=== PATIENT | male | born 1945 | race Caucasian/White ===

== ENCOUNTER 2019-02-14 08:59 | Outpatient (CLI) | payer MEDICARE ==
--- NOTE | 2019-02-14 15:45 | NM ---
Nuclear medicine ESME brain scan: DATE: 74-year-old male with Parkinson's disease. TECHNIQUE: Premedication with 131 mg of potassium iodide one hour prior to injection of radiopharmaceutical. IV injection of 4.7 mCi of I-123 of Ioflupane. 3 hours later, axial SPECT images of brain performed. FINDINGS: There is uptake in the bilateral caudate nuclei, but markedly diminished, nearly absent activity in t he bilateral putamen. IMPRESSION: Abnormal scan, positive for parkinsonism.
== END 2019-02-14 09:00 | disposition home or self-care (01) ==
LOC: NM 08:59
PROVIDERS: ATTEND Psychiatry & Neurology Neurology
DX: G20 Parkinson's disease (principal)
CPT/HCPCS: 78607; A9584

== ENCOUNTER 2019-03-16 14:28 | Outpatient (CLI) | payer MEDICARE ==
--- NOTE | 2019-03-16 15:31 | BD ---
EXAM: Bone densitometry using DEXA HISTORY: 74-year-old male screening for osteoporosis FINDINGS: L1--bone mineral density 0.711 g/sq cm; T score -3.3 ; Z score -2.4 L2--bone mineral density 0.808 g/sq cm; T score -2.6 ; Z score -1.6 L3--bone mineral density 0.779 g/sq cm; T score -2.9 ; Z score -2.0 L4--bone mineral density 0.930 g/sq cm; T score -1.5 ; Z score -0.4 Total L1-L4--bone mineral density 0.817 g/sq cm; T score -2.5 ; Z score -1.5 Left femoral neck--bone mineral density0.389; T score -4.0 ; Z score -2.7 Total proximal left femur--bone mineral density 0.583; T score -3.0 ; Z score -2.2 The 10 year fracture risk for a major osteoporotic fracture is 28% and for a hip fracture is 17%. IMPRESSION: Osteoporosis
== END 2019-03-16 14:29 | disposition home or self-care (01) ==
LOC: BICMAMMO 14:28
PROVIDERS: ATTEND Internal Medicine Rheumatology
DX: Z13.820 Encounter for screening for osteoporosis (principal); M81.0 Age-related osteoporosis without current pathological fracture
CPT/HCPCS: 77080

== ENCOUNTER 2020-07-07 19:05 | Inpatient (IN) | payer MEDICARE ==
[2020-07-07 19:51] LABS: #Basophils 0.1 thou/uL (0.0-0.2); #Eosinphils 0.2 thou/uL (0.0-0.7); #Monocytes 0.8 thou/uL (0.11-0.59); #Neutrophils 6.3 thou/uL (1.40-6.50); %Basophils 0.7 % (0.0-1.0); %Eosinophils 2.1 % (0.0-10.0); %Lymphocytes 21.7 % (21.0-51.0); %Monocytes 8.2 % (0.0-10.0); %Neutrophils 67.3 % (42.0-75.0); Mean Corpuscular HGB CONC 33.1 g/dL (32.0-36.0); Mean Corpuscular Hemoglobin 32.4 pg (27.0-31.0); Mean Corpuscular Volume 97.7 fL (78.0-98.0); Mean Platelet Volume 8.6 fL (7.4-10.4); Platelet Count 185 thou/uL (130-400); RBC Distribution Width 12.4 % (11.5-14.5); Red Blood Cell (RBC) Count 4.95 mill/uL (4.70-6.10); White Blood Cell (WBC) Count 9.3 thou/uL (4.8-10.8)
[2020-07-07 20:09] LABS: ALT (SGPT) 15 U/L (8-55); AST (SGOT) 17 U/L (5-34); Albumin 4.2 g/dL (3.4-4.8); Alkaline Phosphatase 84 U/L (40-110); Anion Gap 15 mmol/L (10-20); BUN (Urea Nitrogen) 32 mg/dL (8.4-25.7); Bilirubin, Total 0.4 mg/dL (0.2-1.2); CK (CPK) 50 U/L (30-200); Calc. Creatinine Clearance 0 mL/min (70-130); Calcium 9.6 mg/dL (7.8-10.44); Carbon Dioxide 23 mmol/L (23-31); Chloride 107 mmol/L (98-107); Estimated GFR-MDRD 65; Globulin 3.2 g/dL (2.4-3.5); Glucose 101 mg/dL (83-110); Potassium 4.6 mmol/L (3.5-5.1); Protein, Total 7.4 g/dL (5.8-8.1); Sodium 140 mmol/L (136-145)
--- NOTE | 2020-07-07 20:34 | RAD ---
Radiograph right hip 2 views: 07/07/2020 8:27 PM HISTORY: 75-year-old male with right hip pain COMPARISON: 07/07/2020 5:35 PM FINDINGS: There is no interval change since 3 hours ago. IMPRESSION: Acute, traumatic, impacted subcapital right femoral neck fracture.
--- NOTE | 2020-07-07 20:36 | RAD ---
Radiograph right femur 2 views: 07/07/2020 HISTORY: 75-year-old male with right thigh pain from fall FINDINGS: There is an impacted right subcapital femoral neck fracture. There is no intertrochanteric, femoral shaft, or distal femoral condyle, fracture. IMPRESSION: Acute, traumatic, impacted right subcapital femoral neck fracture.
--- NOTE | 2020-07-07 20:37 | RAD ---
RADIOGRAPH RIGHT KNEE 4VIEWS: DATE: 07/07/2020 HISTORY: 75-year-old male with acute, traumatic right knee pain FINDINGS: There is no evidence of fracture or dislocation. There is no evidence of periostitis, permeative lesi on, osteolytic lesion, or osteoblastic lesion. The joint spaces are maintained without erosions or significant osteophytes. Diffuse osteopenia. IMPRESSION: No focal osseous abnormality.
--- NOTE | 2020-07-07 20:45 | CT ---
CT BRAIN NONCONTRAST: DATE: 07/07/2020 HISTORY: 75-year-old male status post head trauma from fall FINDINGS: There is no evidence of acute intra-axial or extra-axial hemorrhage. There is no midline shift or any other mass effect. There is no extra-axial fluid collection. There is no evidence of obstructive hydrocephalus. Calvarium is intact. IMPRESSION: No acute intracranial findings.
--- NOTE | 2020-07-07 20:56 | RAD ---
PORTABLE CHEST: Date: 07/07/2020 HISTORY: Preoperative evaluation. FINDINGS: The patient is rotated, distorting the chest. The lungs appear clear. No infiltrate or vascular conge stion. Heart size upper normal. IMPRESSION: No acute lung process. POS: AGW
[2020-07-07] MEDS ORDERED: Fentanyl 100 MCG/2 ML VIAL ONE (21:34)
--- NOTE | 2020-07-07 22:42 | HP ---
REQUESTING PHYSICIAN: Dr. Beach. ATTENDING SURGEON: Dr. Prather. CONSULTATION: Orthopedics, Dr. Allen. HISTORY OF PRESENT ILLNESS: The patient is a 75-year-old man with significant history of Parkinson's. He reports having fallen approximately 1 week ago. The patient was taken to his clinic today where he underwent radiographs of his right hip, he had displaced femoral neck fracture, at which time he was transferred to our facility for evaluation and examination for admission and orthopedic consultation. The patient is a poor historian and has no family with him here. ALLERGIES: "SOME SORT OF OPIATE PATCH." THE PATIENT REPORTS HE IS UNSURE OF THE REACTION. HE JUST KNOWS THAT HE WAS TOLD NOT TO HAVE THAT MEDICINE AGAIN. CURRENT MEDICATIONS: Inositol. PAST MEDICAL HISTORY: Parkinson, osteoporosis. PAST SURGICAL HISTORY: Tonsillectomy. SOCIAL HISTORY: The patient reports living at home with his spouse. He denies drug, tobacco, or alcohol use. REVIEW OF SYSTEMS: A 10-point review of systems is negative as otherwise stated. PHYSICAL EXAMINATION: VITAL SIGNS: Blood pressure 146/58, heart rate 80, respirations 14, oxygen saturation is 96% on room air, temperature is 98.7. GENERAL: The patient is resting comfortably in bed. He is awake, alert, conversant, appropriate. His [place] Coma Scale is 15. HEENT: Head is normocephalic and atraumatic. Eyes, extraocular motion intact. PERRLA bilaterally. Ears are atraumatic without discharge. Nose is atraumatic without discharge. Oropharynx is clear. NECK: Nontender. Trachea is midline with no JVD. CHEST: Clear to auscultation with good inspiratory and expiratory effort. HEART: Regular rate and rhythm. ABDOMEN: Soft, flat, nontender with active bowel sounds. EXTREMITIES: Neurovascularly intact x4. The patient is holding his right hip slightly flexed and rotated inward. BACK: By report is atraumatic and nontender. LABORATORY FINDINGS: White blood cell count 9.3, hemoglobin 16.0, hematocrit 48.4, and platelets 185. Sodium 140, potassium 4.6, chloride 107, CO2 of 23, BUN 32, creatinine 1.11, glucose 101. LFTs are unremarkable. Troponin is less than 0.010. RADIOGRAPHIC REPORT: CT of the brain without contrast shows no acute intracranial findings. AP chest x-ray shows no acute lung process. Views of the right hip show an acute traumatic impacted subcapital right femoral neck fracture. Views of the right femur again demonstrate the subcapital femoral neck fracture. Views of the right knee show no acute osseous abnormality. ASSESSMENT/PLAN: 1. Status post ground level fall with remote presentation. 2. Right subcapital femoral neck fracture. 3. Acute pain secondary to above. 4. History of Parkinson disease. PLAN: Plan will be to admit the patient to the surgical floor. He will have pain control, pulmonary toilet, gastritis, and mechanical VTE prophylaxis. The patient will be made n.p.o. after midnight. The patient will be evaluated by Dr. Allen in the morning. He was called by the emergency room physician. The patient's radiographic findings, examination, laboratory findings were discussed in the emergency department with Dr. Prather. Job ID: [id number]
[2020-07-07 23:33] LABS: Bilirubin Negative (Negative); Blood, Urine Negative (Negative); Clarity Clear (Clear); Glucose, Urine (Dipstick) Normal (Negative); Ketone, Urine Negative (Negative); Leukocyte Negative Leu/uL (Negative); Nitrite Negative (Negative); Protein, Urine (Dipstick) 10 mg/dL (Neg-Trace); Specific Gravity, Urine 1.012 (1.002-1.036); Urobilinogen Normal mg/dL (Less than 2); pH, Urine 5.5 (5.0-9.0)
[2020-07-08] MEDS ORDERED: Ondansetron ODT 4 MG TAB PO PRN (00:42)
[2020-07-08] MEDS ORDERED: Dextrose 50% Abboject 50 ML SYRINGE SLOW IVP PRN (00:42)
[2020-07-08] MEDS ORDERED: Ondansetron PF 4 MG/2 ML Vial IVP PRN (00:42)
[2020-07-08] MEDS ORDERED: traMADol HCl 50 MG TAB PO PRN (00:42)
[2020-07-08] MEDS ORDERED: Dextrose 5% in Water 1,000 ML IV PRN (00:42)
[2020-07-08 01:22] VITALS: BMI 17.4
[2020-07-08] MEDS ORDERED: Acetaminophen 500 MG TAB PO SCH (01:30)
[2020-07-08] MEDS ORDERED: Famotidine 20 MG TAB PO SCH (01:30)
[2020-07-08] MEDS: Ketorolac Tromethamine 30 MG/ML VIAL IVP SCH ×3 (01:36→09:27)
[2020-07-08] MEDS: Sodium Chloride 0.9% 1,000 ML IV SCH ×3 (01:37→20:16)
[2020-07-08] MEDS: Acetaminophen 500 MG TAB PO SCH ×3 (01:37→20:03)
[2020-07-08] MEDS: Cyclobenzaprine 10 MG TAB PO PRN (01:55)
[2020-07-08] MEDS ORDERED: diphenhydrAMINE 25 MG CAP PO PRN (04:41)
[2020-07-08] MEDS ORDERED: diphenhydrAMINE 25 MG CAP PO SCH (05:00)
[2020-07-08 06:09] LABS: #Basophils 0.1 thou/uL (0.0-0.2); #Eosinphils 0.2 thou/uL (0.0-0.7); #Lymphocytes 2.8 thou/uL (1.20-3.40); #Monocytes 0.8 thou/uL (0.11-0.59); #Neutrophils 6.5 thou/uL (1.40-6.50); %Basophils 1.1 % (0.0-1.0); %Eosinophils 1.7 % (0.0-10.0); %Lymphocytes 26.5 % (21.0-51.0); %Monocytes 7.9 % (0.0-10.0); %Neutrophils 62.7 % (42.0-75.0); Hemoglobin 15.8 g/dL (14.0-18.0); Mean Corpuscular HGB CONC 33.8 g/dL (32.0-36.0); Mean Corpuscular Hemoglobin 32.4 pg (27.0-31.0); Mean Corpuscular Volume 95.8 fL (78.0-98.0); Platelet Count 191 thou/uL (130-400); RBC Distribution Width 12.3 % (11.5-14.5); Red Blood Cell (RBC) Count 4.86 mill/uL (4.70-6.10); White Blood Cell (WBC) Count 10.4 thou/uL (4.8-10.8)
[2020-07-08 06:28] LABS: Anion Gap 14 mmol/L (10-20); BUN (Urea Nitrogen) 31 mg/dL (8.4-25.7); Calc. Creatinine Clearance 49 mL/min (70-130); Calcium 9.2 mg/dL (7.8-10.44); Carbon Dioxide 26 mmol/L (23-31); Chloride 107 mmol/L (98-107); Estimated GFR-MDRD 71; Glucose 91 mg/dL (83-110); Magnesium 2.2 mg/dL (1.6-2.6); Phosphorus 3.9 mg/dL (2.3-4.7); Potassium 4.1 mmol/L (3.5-5.1); Sodium 143 mmol/L (136-145)
[2020-07-08] MEDS ORDERED: CEFAZOLIN 2 GM in Premix Bag 1 BAG IVPB SCH (07:15)
--- NOTE | 2020-07-08 08:46 | CON ---
DATE OF CONSULTATION: CHIEF COMPLAINT: Right hip pain. CONSULTING PROVIDER: Servando Beach MD HISTORY OF PRESENT ILLNESS: Mr. Delaney is a 75-year-old male, who fell approximately one week ago. He lives at home with his . He normally walks with a walker around the house holding onto furniture without any other assistive device. He does have advanced Parkinson disorder and has poor balance. He does fall fairly frequently. He has had severe pain, which has not improved. He presented to the Emergency Department last night because of his pain and inability to ambulate. He was found to have a right displaced femoral neck fracture. He has his at the bedside. ALLERGIES: UNSURE EXACTLY, BUT THE PATIENT REPORTS HAVING A REACTION TO AN OPIOID PATCH. MEDICATIONS: Inositol. PAST MEDICAL HISTORY: Parkinson disease and osteoporosis. PAST SURGICAL HISTORY: Tonsillectomy. SOCIAL HISTORY: The patient lives at home with his . He is independent. His mobility has been in decline recently; however. REVIEW OF SYSTEMS: Positive for right hip pain. Otherwise, negative 10-point review of systems. PHYSICAL EXAMINATION: VITAL SIGNS: Temperature is 97.3, pulse is 75, respiratory rate of 14, oxygen saturation 96%, and blood pressure is 126/45. GENERAL: He is alert, sitting upright, no apparent distress. HEENT: The patient has a daron appearance to his skin. Atraumatic. RESPIRATORY: Breathing comfortably. ABDOMEN: Soft, nontender, and nondistended. The patient is very thin. CARDIOVASCULAR: Pulses palpable and regular peripherally. MUSCULOSKELETAL: The patient's right lower extremity is in a flexed position at the hip. His right leg is shorter than the left. He has a large amount of tension in his musculature and is difficult for him to relax. He is able to fully extend the left leg without contracture. The right leg is in a flexed posture. He reports secondary to pain. He is able to feel light touch distally. He has warm and well-perfused feet. IMAGES: X-rays of the pelvis and right hip demonstrated displaced right femoral neck fracture. IMPRESSION: Right femoral neck fracture in an elderly male with Parkinson disease. PLAN: At this point, I think the patient would benefit from surgical intervention. We have reviewed both surgical intervention and nonoperative measures. Surgery would allow him to mobilize and hopefully allow pain relief as he is in quite a bit of pain currently. The risks of surgery would include dislocation, I think he is at high risk for this given that he has Parkinson disorder. He would also be at risk for more common complications such as infection, wound problem, DVT, PE, medical complications such as NM, stroke, or even . Nonoperative management would be possible; however, the patient has family, who are worried about his pain level and that he would be unable to mobilize and get back to his independent living. For now, they want to proceed with surgery. I will talk to them once more before surgery to confirm that this is still their wish. He will be n.p.o. He will have antibiotics on-call to the operating room. Job ID: [id number]
[2020-07-08] MEDS ORDERED: HYDROXYTRYPTOPHAN 50 MG PO SCH (09:00)
[2020-07-08] MEDS ORDERED: Dexamethasone 20 MG/5 ML VIAL ONE (09:40)
[2020-07-08] MEDS ORDERED: PROPOFOL 200 MG/20 ML VIAL ONE (09:40)
[2020-07-08] MEDS ORDERED: Lidocaine 1% PF 5 ML VIAL ONE (09:40)
[2020-07-08] MEDS ORDERED: Rocuronium Bromide 10 MG/ML (10ML VIAL) ONE (09:40)
[2020-07-08] MEDS ORDERED: Ondansetron PF 4 MG/2 ML Vial ONE (09:40)
[2020-07-08] MEDS: Famotidine 20 MG TAB PO SCH (09:51)
[2020-07-08] MEDS ORDERED: Fentanyl 100 MCG/2 ML VIAL ONE ×2 (13:12→14:23)
[2020-07-08 14:17] LABS: SARS-CoV-2 MS2 Positive; SARS-CoV-2 N Gene Negative; SARS-CoV-2 S Gene Negative; SARS-CoV-2 by NAA Not Detected (NotDetected); SARS-CoV-2 orf1ab Negative
[2020-07-08] MEDS ORDERED: SUGAMMADEX SODIUM 200 MG/2 ML VIAL ONE (15:10)
[2020-07-08] MEDS ORDERED: Ondansetron HCl/PF 4 MG/2 ML Vial IVP PRN (15:44)
[2020-07-08] MEDS ORDERED: Promethazine HCl 25 MG/ML VIAL IM PRN (15:44)
[2020-07-08] MEDS ORDERED: Morphine Sulfate 2 MG/ML SYRINGE SLOW IVP PRN (15:44)
[2020-07-08] MEDS ORDERED: Promethazine HCl 25 MG/ML VIAL SLOW IVP PRN (15:44)
--- NOTE | 2020-07-08 16:47 | RAD ---
XR Hip Rt 2-3 View History: ORIF hip Comparison: Finger radiograph prior day Findings: Mildly impacted right femoral neck fracture is now transfixed with 3 partially threaded can nulated screws. Impression: Fluoroscopy for procedure purposes. Fluoroscopy time: 48.6 seconds.
--- NOTE | 2020-07-08 20:17 | OP ---
DATE OF PROCEDURE: 07/08/2020 PROCEDURE PERFORMED: Right femoral neck fracture percutaneous screw fixation. PREOPERATIVE DIAGNOSIS: Displaced right femoral neck fracture. POSTOPERATIVE DIAGNOSIS: Displaced right femoral neck fracture. COMPLICATIONS: None. ESTIMATED BLOOD LOSS: Minimal. CONSTRUCTION SUPERINTENDENT: None. IMPLANTS: Three 7.3 mm cannulated screws were utilized. INDICATIONS: Mr. Delaney is a 75-year-old male who fell and fractured his right femoral neck. He had a valgus impacted fracture. He was indicated for percutaneous screw fixation to restore the ability to mobilize and provide pain relief. He was thought to be at high risk of complication if we proceeded with more invasive surgery such as arthroplasty. Risks have been reviewed. He has elected to proceed with the operation. DESCRIPTION OF PROCEDURE: Mr. Delaney was identified in the preoperative holding area. His correct extremity was marked. He was carried to the operating room. He was positioned supine. General anesthesia was induced. He was placed on the fracture table. We pulled gentle traction and took intraoperative x-rays confirming a reduced femoral neck. At this point, we proceeded to prep and drape the right lower extremity. We then made a small incision over the lateral thigh. We dissected down and placed our guide pin in an appropriate start point. An inferior guide pin was placed followed by two more proximal guide pins. These were in an inverted triangle pattern. At this point, we took images. We measured our guide pin length. We then overdrilled the guide pins and placed three screws. These were seated appropriately with x-rays. We took final images. We then irrigated our wound and closed with 2-0 Vicryl suture followed by dung. A sterile dressing was applied. The patient was taken to the recovery room in good condition at this point without complication. Job ID: [id number]
[2020-07-08] MEDS: CEFAZOLIN 2 GM in Premix Bag 1 BAG IVPB SCH (21:14)
[2020-07-09] MEDS: Acetaminophen 500 MG TAB PO SCH ×5 (00:34→20:42)
[2020-07-09] MEDS: Famotidine 20 MG TAB PO SCH ×3 (00:35→20:43)
[2020-07-09] MEDS: INOSITOL PO SCH ×2 (00:35→00:36)
[2020-07-09] MEDS: Senokot S 8.6-50 MG TAB PO SCH ×3 (00:35→20:43)
[2020-07-09] MEDS: Melatonin 3 MG TAB PO SCH ×2 (03:07→20:43)
--- NOTE | 2020-07-09 03:57 | PRG ---
DATE OF SERVICE: 07/08/2020 SUBJECTIVE: The patient was seen this evening during rounds. He was lying in bed, resting comfortably in sleep, with no signs of acute distress. He is postoperative day 1 status post percutaneous screw fixation of his right subcapital femoral neck fracture. OBJECTIVE: VITAL SIGNS: Temperature 98.3, pulse 67, respirations 13, oxygen saturation 99% on room air, blood pressure 110/56. ASSESSMENT: 1. Status post fall 1 week before presentation. 2. Right femoral neck fracture, status post repair. 3. History of Parkinson's and osteoporosis. PLAN: Continue current diet and pain regimen. Continue physical and occupational therapy. The patient is pending discharge to acute rehab facility. Job ID: [id number]
[2020-07-09 04:57] LABS: Hemoglobin 15.4 g/dL (14.0-18.0); Mean Corpuscular HGB CONC 32.9 g/dL (32.0-36.0); Mean Corpuscular Volume 97.3 fL (78.0-98.0); Mean Platelet Volume 8.5 fL (7.4-10.4); Platelet Count 173 thou/uL (130-400); RBC Distribution Width 12.2 % (11.5-14.5); Red Blood Cell (RBC) Count 4.81 mill/uL (4.70-6.10)
[2020-07-09] MEDS ORDERED: Sodium Chloride 0.9% 1,000 ML IV SCH (05:15)
[2020-07-09] MEDS: CEFAZOLIN 2 GM in Premix Bag 1 BAG IVPB SCH (05:18)
[2020-07-09 05:20] LABS: Anion Gap 18 mmol/L (10-20); BUN (Urea Nitrogen) 30 mg/dL (8.4-25.7); Calc. Creatinine Clearance 60 mL/min (70-130); Calcium 9.2 mg/dL (7.8-10.44); Carbon Dioxide 19 mmol/L (23-31); Chloride 110 mmol/L (98-107); Estimated GFR-MDRD 88; Glucose 87 mg/dL (83-110); Magnesium 2.2 mg/dL (1.6-2.6); Phosphorus 4.3 mg/dL (2.3-4.7); Potassium 5.8 mmol/L (3.5-5.1); Sodium 141 mmol/L (136-145)
[2020-07-09 05:31] LABS: Troponin I 0.012 ng/mL (< 0.028)
--- NOTE | 2020-07-09 06:23 | PRG ---
DATE OF SERVICE: 07/08/2020 SUBJECTIVE: Mr. Delaney is a 75-year-old man with a history of Parkinson disease, hospital day #1, status post ground fall 1 week ago, has a displaced femoral neck fracture. The patient was sleeping comfortably in bed this morning. Dr. Allen with Ortho has seen the patient and recommended surgical intervention. The patient's reports that would take place at 2 p.m. this afternoon. Discussed possibility of rehab following surgery with the patient's who was in agreement. OBJECTIVE: VITAL SIGNS: Temperature 97.3, pulse 75, respiration 14, 96% on room air, and blood pressure 126/45. GENERAL: The patient resting comfortably in bed. HEENT: Normocephalic and atraumatic. RESPIRATIONS: Clear to auscultation bilaterally. HEART: Regular rate and rhythm. ABDOMEN: Soft, nontender. LABORATORY FINDINGS: White blood cell count 10.4, hemoglobin 15.8, hematocrit 46.6, platelets 191. Potassium 4.1, creatinine 1.03, phosphorus 3.9, and magnesium 2.4. ASSESSMENT: 1. Status post ground level fall with remote presentation. 2. Right subcapital femoral neck fracture. 3. Acute pain secondary to above. 4. History of Parkinson disease. PLAN: 1. Dr. Allen plans to operate today at 2 p.m. 2. Case Management consult for rehab placement following operation. 3. Continue supportive care with pain management. The patient was seen and evaluated by Dr. Poe during morning rounds. Discussed plan of care with the family, who is in agreement. Job ID: [id number]
[2020-07-09] MEDS: Polyethylene Glycol 3350 17 GM Packet PO SCH (08:22)
[2020-07-09 15:16] LABS: Anion Gap 11 mmol/L (10-20); BUN (Urea Nitrogen) 41 mg/dL (8.4-25.7); Calc. Creatinine Clearance 60 mL/min (70-130); Calcium 8.5 mg/dL (7.8-10.44); Carbon Dioxide 23 mmol/L (23-31); Chloride 111 mmol/L (98-107); Estimated GFR-MDRD 88; Glucose 124 mg/dL (83-110); Potassium 4.3 mmol/L (3.5-5.1); Sodium 141 mmol/L (136-145)
[2020-07-09] MEDS ORDERED: Lactated Ringer's 500 ML IV SCH (16:00)
--- NOTE | 2020-07-09 16:14 | PRG ---
DATE OF SERVICE: 07/09/2020 SUBJECTIVE: The patient was seen during morning rounds on the telemetry floor with Dr. Poe. The patient is currently awake, alert, in no distress. The patient did eat all of his breakfast this morning. The patient had no events on the lockstitch binder other than continued PACs and PJCs that are bigeminy. The patient did have an episode of where he had no ectopy and a rate in the 30s, but it resolved quickly. The patient denies any chest pain or shortness of breath at this time. The patient is postop day #1 percutaneous screw fixation of his right femoral neck fracture. The patient's pain is well controlled at this time. OBJECTIVE: VITAL SIGNS: Temperature 98.0, pulse 97, respirations 16, SpO2 of 97% on room air, and blood pressure 128/58. GENERAL: Elderly male, awake, alert, sitting up in bed, in no acute distress. HEENT: Head is normocephalic and atraumatic, mucous membranes are moist. RESPIRATIONS: Good inspiratory and expiratory effort, no respiratory distress. CARDIAC: Regular rate, no pedal edema. ABDOMEN: Soft, nontender, nondistended. EXTREMITIES: Neurovascularly intact x4, right hip dressing is clean, dry, and intact. LABORATORY DATA: WBC 10.0, RBC 4.81, hemoglobin 15.4, and hematocrit 46.8. Sodium 141, potassium 4.3, chloride 111, carbon dioxide 23, BUN 41, creatinine 0.85, estimated GFR 88, glucose 124, and calcium 8.5. Troponin 0.012. DIAGNOSTICS: There are no new diagnostics to review today. ASSESSMENT: 1. Status post ground level fall with remote presentation. 2. Right subcapital femoral neck fracture, postop day #1 percutaneous screw fixation. 3. Acute traumatic pain secondary to above. 4. History of Parkinson disease and osteoporosis. PLAN: Regular diet as tolerated. Physical and occupational therapy. Pain management. The patient is pending placement for continued rehab and physical therapy. We will move the patient to the surgical floor since he has not had any events overnight. We will continue mechanical SCDs and start chemical VTE prophylaxis with aspirin 81 mg p.o. b.i.d. The patient was examined by Dr. Poe during morning rounds. We will encourage intake. We will continue to monitor renal function and urinary output. The patient was examined by Dr. Poe during morning rounds. Job ID: [id number]
[2020-07-09] MEDS: Aspirin 81 mg Enteric Coated Tablet PO SCH (20:43)
--- NOTE | 2020-07-10 02:59 | PRG ---
DATE OF SERVICE: 07/09/2020 SUBJECTIVE: The patient was seen this evening during rounds. He was lying in bed, resting comfortably, in no signs of acute distress. Nursing reported no acute events. OBJECTIVE: VITAL SIGNS: Temperature 97.5, pulse 72, respirations 16, oxygen saturation 96% on room air, and blood pressure 135/69. ASSESSMENT: 1. Status post fall with delayed presentation. 2. Right femoral neck fracture, status post repair. 3. History of Parkinson's and osteoporosis. PLAN: Continue current diet and pain regimen. Continue physical and occupational therapy. Repeat blood work in the morning. Continue supportive care. The patient is pending discharge to acute rehab facility. He is ready for discharge at this time. Job ID: [id number]
[2020-07-10] MEDS: Acetaminophen 500 MG TAB PO SCH ×4 (03:49→20:21)
[2020-07-10 05:23] LABS: Hemoglobin 13.6 g/dL (14.0-18.0); Mean Corpuscular HGB CONC 31.2 g/dL (32.0-36.0); Mean Corpuscular Hemoglobin 30.3 pg (27.0-31.0); Mean Corpuscular Volume 97.2 fL (78.0-98.0); Mean Platelet Volume 8.9 fL (7.4-10.4); Platelet Count 185 thou/uL (130-400); RBC Distribution Width 12.2 % (11.5-14.5); Red Blood Cell (RBC) Count 4.48 mill/uL (4.70-6.10); White Blood Cell (WBC) Count 7.4 thou/uL (4.8-10.8)
[2020-07-10] MEDS: Senokot S 8.6-50 MG TAB PO SCH ×2 (08:26→20:21)
[2020-07-10] MEDS: Aspirin 81 mg Enteric Coated Tablet PO SCH ×2 (08:26→20:22)
[2020-07-10] MEDS: Polyethylene Glycol 3350 17 GM Packet PO SCH (08:27)
[2020-07-10] MEDS: Cyclobenzaprine 10 MG TAB PO PRN (20:22)
[2020-07-10] MEDS: Melatonin 3 MG TAB PO SCH (20:22)
--- NOTE | 2020-07-11 00:03 | PRG ---
DATE OF SERVICE: SUBJECTIVE: Patient was seen this evening during rounds. He was resting in bed comfortably, sleeping with no signs of acute distress. Nursing reported no acute events. OBJECTIVE: VITAL SIGNS: Temperature 98.7, pulse 88, respirations 18, oxygen saturation 95% on room air, and blood pressure 112/62. ASSESSMENT: 1. Status post fall from standing. 2. Right femoral neck fracture, status post repair. 3. History of Parkinson's and osteoporosis. PLAN: Continue current diet and pain regimen. Continue physical and occupational therapy. Patient is pending discharge to [facility]. Job ID: [id number]
[2020-07-11] MEDS ORDERED: Pramipexole Di-HCl 0.125 MG TAB PO SCH (00:15)
[2020-07-11] MEDS: Acetaminophen 500 MG TAB PO SCH ×4 (01:56→20:06)
--- NOTE | 2020-07-11 07:03 | EKG ---
Test Reason : Blood Pressure : / mmHG Vent. Rate : 064 BPM Atrial Rate : 064 BPM P-R Int : 154 ms QRS Dur : 088 ms QT Int : 456 ms P-R-T Axes : 142 -28 -31 degrees QTc Int : 470 ms Unusual P axis, possible ectopic atrial rhythm with frequent Premature ventricular complexes in a pat tern of bigeminy Nonspecific T wave abnormality Prolonged QT Abnormal ECG Confirmed by DIANE AVILA, GHAZAL ([id number]) on 07/11/2020 7:03:04 AM Referred By: LEVY Confirmed By:GHAZAL CONTRERAS MD
[2020-07-11] MEDS: Polyethylene Glycol 3350 17 GM Packet PO SCH (08:21)
[2020-07-11] MEDS: Aspirin 81 mg Enteric Coated Tablet PO SCH ×2 (08:21→20:07)
[2020-07-11] MEDS: Senokot S 8.6-50 MG TAB PO SCH ×2 (08:21→20:07)
[2020-07-11] MEDS: Bisacodyl 10 MG SUPP PR SCH (10:46)
--- NOTE | 2020-07-11 13:49 | PRG ---
DATE OF SERVICE: 07/10/2020 SUBJECTIVE: Mr. Delaney is a 75-year-old male with a history of Parkinson's, who is hospital day 3 and postop day 2 following repair of right femoral neck fracture. He is resting comfortably in bed, sleeping, in no acute distress. OBJECTIVE: VITAL SIGNS: Temperature 98.5, pulse 46, respirations 18, O2 saturation 96 on room air, blood pressure 152/97. GENERAL: Elderly male, lying in bed, in no acute distress. HEENT: Head is normocephalic and atraumatic. Mucous membranes are moist. RESPIRATIONS: Good inspiratory and expiratory effort. No respiratory distress. CARDIAC: Regular rate and rhythm. No edema. ABDOMEN: Soft, nontender, nondistended. EXTREMITIES: Neurovascularly intact. Right hip dressing is clean, dry, and intact. LABORATORY DATA: White count 7.4. Hemoglobin 13.6, it was 15.4 yesterday. Platelet count 184. BNP 165, which has improved from 258 on the 17th. DIAGNOSTICS: Echocardiogram showed ejection fraction of 50% to 55%, moderately dilated left atrium and mildly enlarged right atrium, trace mitral regurgitation, mild aortic regurgitation, mild tricuspid regurgitation, and mild pulmonic regurgitation. ASSESSMENT: 1. Status post ground level fall with remote presentation. 2. Right subcapital femoral neck fracture, postop day 2 percutaneous screw fixation. 3. Acute traumatic pain secondary to above. 4. History of Parkinson disease and osteoporosis. PLAN: Regular diet as tolerated. Continue physical and occupational therapy. Pain management. Referral has been sent to [facility]. Await approval and the patient will be ready for discharge. The patient was seen and evaluated by Dr. Poe during morning rounds. Discussed the plan of care with the patient and his family, who are in agreement. Job ID: [id number]
--- NOTE | 2020-07-11 13:53 | PRG ---
DATE OF SERVICE: 07/11/2020 SUBJECTIVE: Mr. Delaney is a 75-year-old male, who is postop day 3, following repair of a right femoral neck fracture. The patient was asleep during morning rounds, easily awoken, and cannot touch his lunch. When asked about it, he was not aware that it was there. The patient reports that he ate all his breakfast. Now his lunch generally should be a gluten-free diet. The patient says his pain is well controlled and he has no complaints. The patient has not had a bowel movement. OBJECTIVE: VITAL SIGNS: Temperature 97.8, pulse 68, respirations 16, O2 saturation 96% on room air, blood pressure 115/62. GENERAL: Elderly man, comfortable, lying in bed. HEENT: Unremarkable. RESPIRATIONS: Clear to auscultation bilaterally. CARDIAC: Regular rate and rhythm. MUSCULOSKELETAL: Moving all extremities well. Tremor noted in right hand. NEUROLOGIC: GCS 14. LABORATORY DATA: There is no laboratory data to report. ASSESSMENT: 1. Status post fall with delayed presentation. 2. Right femoral neck fracture, status post repair. 3. History of Parkinson's and osteoporosis. PLAN: 1. Continue current diet and pain regimen. Continue physical and occupational therapy. 2. Add Ensure p.r.n. for the patient. 3. Add Dulcolax for the patient as he has not had a bowel movement. 4. The patient is pending discharge to acute rehab facility. He is choosing [facility]. We are awaiting approval. The patient is ready for discharge. The patient was seen and evaluated by Dr. Poe during morning rounds. Discussed plan of care with the patient and family who are in agreement. Job ID: [id number]
[2020-07-11] MEDS: Pramipexole Di-HCl 0.125 MG TAB PO SCH (20:06)
[2020-07-11] MEDS: Melatonin 3 MG TAB PO SCH (20:07)
[2020-07-12] MEDS: Acetaminophen 500 MG TAB PO SCH ×4 (02:50→21:43)
[2020-07-12] MEDS: Senokot S 8.6-50 MG TAB PO SCH ×2 (09:04→21:46)
[2020-07-12] MEDS: Polyethylene Glycol 3350 17 GM Packet PO SCH (09:05)
[2020-07-12] MEDS: Bisacodyl 10 MG SUPP PR SCH (09:05)
[2020-07-12] MEDS: Aspirin 81 mg Enteric Coated Tablet PO SCH ×2 (09:05→21:44)
--- NOTE | 2020-07-12 15:30 | EKG ---
Test Reason : Blood Pressure : / mmHG Vent. Rate : 071 BPM Atrial Rate : 071 BPM P-R Int : 150 ms QRS Dur : 080 ms QT Int : 452 ms P-R-T Axes : 073 -46 032 degrees QTc Int : 491 ms Sinus rhythm with frequent Premature ventricular complexes in a pattern of bigeminy Left anterior fascicular block Nonspecific ST and T wave abnormality Abnormal ECG Confirmed by SHEREEN AVILA, MABLE Hankins ([id number]), material expeditor AB ALONSO ([id number]) on 07/12/2020 3:30:26 PM Referred By: Confirmed By:MABLE REGAN MD
[2020-07-12] MEDS: Melatonin 3 MG TAB PO SCH (21:44)
[2020-07-12] MEDS: Pramipexole Di-HCl 0.125 MG TAB PO SCH (21:45)
[2020-07-13] MEDS: Acetaminophen 500 MG TAB PO SCH ×3 (03:35→13:04)
[2020-07-13] MEDS: Aspirin 81 mg Enteric Coated Tablet PO SCH (09:24)
[2020-07-13] MEDS: Polyethylene Glycol 3350 17 GM Packet PO SCH (09:25)
[2020-07-13] MEDS: Bisacodyl 10 MG SUPP PR SCH (09:25)
[2020-07-13] MEDS: Senokot S 8.6-50 MG TAB PO SCH (09:49)
[2020-07-13] MEDS: Cyclobenzaprine 10 MG TAB PO PRN (14:30)
[2020-07-13 15:51] VITALS: TEMP 98
[2020-07-13 16:02] VITALS: BP 101/57
--- NOTE | 2020-07-17 12:20 | PQF ---
CLINICAL DOCUMENTATION CLARIFICATION FORM: Dear : Jose Poe DO Date / Time: 07/17/2020 Please exercise your independent, professional judgment in responding to the clarification form. Clinical indicators are provided on the bottom of this form for your review Please check appropriate box(es): [ ] Protein Calorie Malnutrition: [ ] Mild [ ] Moderate [ ] Severe [ ] Other Malnutrition (please specify) [ ] Underweight without malnutrition [ ] Cachexia [ ] Other diagnosis (Please specify if any) [ ] Unable to determine In addition, please specify: Present on Admission (POA): [ ] Yes [ ] No [ ] Unable to determine Physician Signature: Date/Time: For continuity of documentation, please document condition throughout progress notes and discharge summary. Thank You. To be completed by CDI/Coding staff for physician review: Present Clinical Indicators - Signs / Symptoms / Labs Results and Location in Medical Record [x] moderate Malnutrition, Failure to Thrive, Cachexia Nutritional consult on 07/08 [x] BMI of 17.5 Nutritional consult on 07/08 Two or More of the Following ASPEN Criteria: [ ] Unintentional Insufficient Energy Intake [ ] Weight Loss [x] Muscle wasting Nutritional consult on 07/08 [ ] Loss of Subcutaneous Fat [ ] Localized/Generalized Fluid Accumulation [ ] Diminished Handgrip Strength Present Risk Factors Results and Location in Medical Record [ ] Change in appetite / nausea / vomiting / diarrhea [ ] Inability to consume adequate caloric intake [ ] Chronic illness cancer, cirrhosis [x] Aged person 75 yrs H&P on 07/07 [ ] PEG tube [ ] Short gut syndrome Present Treatments Results and Location in Medical Record [x] Dietary consult consult on 07/08, 07/11 [x] Recommended Ensure Enlive BID to promote healing and weight gain Nutritional consult on 07/08 [ ] TPN / tube feedings [ ] Assistance with feeding [ ] Appetite stimulant - medication [employer] Signature: AAS Phone #: Date/Time: 07/17/2020 Moderate Malnutrition (in acute illness) ? Energy Intake: <75% of estimated energy requirement for > 7 days ? Weight Loss: 1-2%/1 week; 5%/ 1 month; 7.5%/3 months ? Other: mild body fat loss; mild muscle mass loss; mild fluid accumulation; Severe Malnutrition (in acute illness) ? Energy Intake: ? 50% of estimated energy requirement for ? 5 days ? Weight Loss: >2%/1 week; >5%/1 month; >7.5%/3 months ? Other: moderate body fat loss; moderate muscle mass loss; moderate- severe fluid accumulation; measurably reduced sand conditioner strength Moderate Malnutrition (in chronic illness) ? Energy Intake: <75% of estimated energy requirement for ?1 month ? Weight Loss: 5%/1 month; 7.5%/3 months; 10%/6 months; 20%/1 year ? Other: mild body fat loss; mild muscle mass loss; mild fluid accumulation Severe Malnutrition (in chronic illness) ? Energy Intake: ?75% of estimated energy requirement for ?1 month ? Weight Loss: >5%/1 month; >7.5%/3 months; >10%/6 months; >20%/1 year ? Other: severe body fat loss; severe muscle mass loss; severe fluid accumulation; measurably reduced sand conditioner strength This is a permanent part of the Medical Record MTDD
== END 2020-07-13 18:05 | disposition swing bed (61) | DRG 482 ==
LOC: ERS 19:05 → SURG A 20:37 → 2NO 07-08 18:28 → SURG A 07-09 19:29
PROVIDERS: ADMIT Specialist; ATTEND Surgery
PROC: 0QS634Z Reposition Right Upper Femur with Internal Fixation Device, Percutaneous Approach (ICD-10-PCS; principal; 2020-07-08)
DX: S72.011A Unspecified intracapsular fracture of right femur, initial encounter for closed fracture (principal); G20 Parkinson's disease; M81.0 Age-related osteoporosis without current pathological fracture; Z79.899 Other long term (current) drug therapy; Z90.89 Acquired absence of other organs; Z88.8 Allergy status to other drugs, medicaments and biological substances; Z20.828 Contact with and (suspected) exposure to other viral communicable diseases; W18.30XA Fall on same level, unspecified, initial encounter
CPT/HCPCS: 36415; 70450; 71045; 76000; 80048; 80053; 81003; 82550; 83735; 83880; 84100; 84484; 85025; 85027; 87635; 93005; 93010; 93306; C1713; C1769; G0390; J0690; J1100; J1885; J2405; J2704; J3010; Q0163; U0003